=== PATIENT | female | born 1975 | race Asian ===

== ENCOUNTER 2018-07-20 07:06 | Day surgery (SDC) | payer BC ==
[2018-07-20] MEDS: CEFAZOLIN 2 GM/50 ML (PMX) 50 ML IVPB (07:00)
[~2018-07-20 07:06] MED LIST: GLYCOPYRROLATE 0.4 MG INJ; SEVOFLURANE 15 MIN
[2018-07-20] MEDS: SOD CHLORIDE 0.9% 1,000 ML IV (08:08)
[2018-07-20 08:30] LABS: ADD MAN DIFF? NO
[2018-07-20 08:40] LABS: WHITE BLOOD COUNT 7.2 10^3/ul (4.8-10.8)
[2018-07-20 08:40] LABS: BASOPHIL # 0.1 10^3/ul (0.0-0.1); BASOPHILS % 0.7 % (0.0-2.0); EOSINOPHILS # 0.1 10^3/ul (0.0-0.5); HEMATOCRIT 38.6 % (37.0-47.0); HEMOGLOBIN 12.1 g/dl (12.0-16.0); LYMPHOCYTES % 28.1 % (15.0-51.0); MEAN CORPUSCULAR HEMOGLOBIN 28.4 pg (29.0-33.0); MEAN CORPUSCULAR HGB CONC 31.3 g/dl (32.0-37.0); MEAN CORPUSCULAR VOLUME 90.6 fl (82.0-101.0); MEAN PLATELET VOLUME 11.3 fl (7.4-10.4); MONOCYTE # 0.5 10^3/ul (0.3-0.9); MONOCYTES % 6.9 % (0.0-11.0); NEUTROPHIL # 4.5 10^3/ul (1.6-7.5); PLATELET COUNT 285 10^3/UL (140-415); RED BLOOD COUNT 4.26 10^6/ul (4.20-5.40); RED CELL DISTRIBUTION WIDTH 13.2 % (11.5-14.5)
[2018-07-20 08:43] LABS: PROTIME 12.3 Sec (11.9-14.9)
[2018-07-20 08:44] LABS: PARTIAL THROMBOPLASTIN TIME 32.8 Sec (23.0-35.0)
[2018-07-20 08:48] LABS: ALANINE AMINOTRANSFERASE 10 IU/L (13-69); ALBUMIN 4.7 g/dl (3.3-4.9); ALBUMIN/GLOBULIN RATIO 1.09; ALKALINE PHOSPHATASE 60 IU/L (42-121); ANION GAP 12 (5-13); ASPARTATE AMINO TRANSFERASE 37 IU/L (15-46); BILIRUBIN,INDIRECT 0.4 mg/dl (0-1.1); BILIRUBIN,TOTAL 0.4 mg/dl (0.2-1.3); CALCIUM 9.2 mg/dl (8.4-10.2); CARBON DIOXIDE 24 mmol/L (21-31); CHLORIDE 106 mmol/L (97-110); Estimated GFR > 60 mL/min (>60); GLUCOSE 84 mg/dl (70-220); POTASSIUM 4.4 mmol/L (3.5-5.1); SODIUM 142 mmol/L (135-144)
[2018-07-20 09:00] LABS: BLOOD UREA NITROGEN 6 mg/dl (7-20); CREATININE 0.43 mg/dl (0.44-1.00)
[2018-07-20] MEDS ORDERED: PROPOFOL 20 ML (09:29)
[2018-07-20] MEDS ORDERED: NEOSTIGMINE 3 MG/3 ML SYRINGE (09:29)
[2018-07-20] MEDS ORDERED: SUCCINYLCHOLINE CHLORIDE 100 MG/5 ML SYG IV (09:29)
[2018-07-20] MEDS ORDERED: ROCURONIUM 50 MG INJ (09:29)
[2018-07-20] MEDS ORDERED: GLYCOPYRROLATE 0.4 MG INJ (09:29)
[2018-07-20] MEDS ORDERED: LIDOCAINE 2% (SDV) 5 ML INJ (09:29)
[2018-07-20] MEDS ORDERED: MEPERIDINE 100 MG INJ (09:30)
[2018-07-20] MEDS ORDERED: CEFAZOLIN 1 GM INJ (09:31)
[2018-07-20] MEDS ORDERED: ONDANSETRON 4 MG INJ (09:31)
[2018-07-20] MEDS ORDERED: METOCLOPRAMIDE 10 MG INJ (09:31)
[2018-07-20] MEDS: BUPIVACAINE 0.25% (MPF) 30 ML INJ (10:11)
[2018-07-20] MEDS ORDERED: HYDROCODONE/APAP (5/325) TAB PO (10:30)
[2018-07-20] MEDS ORDERED: METOCLOPRAMIDE 10 MG INJ IV (10:30)
[2018-07-20] MEDS ORDERED: OXYCODONE/ACETAMINOPHEN (5/325) TAB PO ×2 (10:30)
[2018-07-20] MEDS ORDERED: FENTAnyl 50 MCG/ML VIAL IV ×3 (10:30)
[2018-07-20] MEDS ORDERED: DIPHENHYDRAMINE 50 MG INJ IV (10:30)
[2018-07-20] MEDS ORDERED: MIDAZOLAM 1 MG/ML 2 ML INJ IV (10:30)
[2018-07-20] MEDS ORDERED: HYDROmorphONE 1 MG/5 ML IV SYRINGE IV ×3 (10:30)
[2018-07-20] MEDS ORDERED: MEPERIDINE 25 MG INJ IV (10:30)
[2018-07-20] MEDS: ONDANSETRON 4 MG INJ IV (11:11)
== END 2018-07-20 12:39 | disposition home or self-care (01) ==
LOC: SDS 07:06
DX: K80.10 Calculus of gallbladder with chronic cholecystitis without obstruction (principal)
CPT/HCPCS: 47562; 80053; 84703; 85025; 85610; 85730; 88304